=== PATIENT | female | born 1980 | race Caucasian/White ===

== ENCOUNTER 2018-08-22 14:41 | Emergency (ER) | payer BC, SELFPAY ==
[2018-08-22 15:49] LABS: #Eosinphils 0.1 thou/uL (0.0-0.7); #Lymphocytes 3.1 thou/uL (1.20-3.40); #Monocytes 0.8 thou/uL (0.11-0.59); #Neutrophils 4.2 thou/uL (1.40-6.50); %Basophils 0.5 % (0.0-1.0); %Eosinophils 1.2 % (0.0-10.0); %Lymphocytes 37.4 % (21.0-51.0); %Monocytes 9.7 % (0.0-10.0); %Neutrophils 51.2 % (42.0-75.0); Hemoglobin 15.4 g/dL (12.0-16.0); Mean Corpuscular HGB CONC 34.6 g/dL (32.0-36.0); Mean Corpuscular Hemoglobin 31.7 pg (27.0-31.0); Mean Corpuscular Volume 91.8 fL (78.0-98.0); Mean Platelet Volume 6.9 fL (7.4-10.4); Platelet Count 252 thou/uL (130-400); RBC Distribution Width 12.3 % (11.5-14.5); Red Blood Cell (RBC) Count 4.87 mill/uL (4.20-5.40); White Blood Cell (WBC) Count 8.3 thou/uL (4.8-10.8)
[2018-08-22 16:18] LABS: Bilirubin Negative (Negative); Blood, Urine Negative (Negative); Clarity CLEAR (Clear); Glucose, Urine (Dipstick) Negative (Negative); Leukocyte Trace (Negative); Nitrite Negative (Negative); Protein, Urine (Dipstick) Negative (Neg-Trace); Specific Gravity, Urine 1.009 (1.002-1.036); Urobilinogen 0.2 mg/dL (0.2-1.0); pH, Urine 7.5 (5.0-9.0)
[2018-08-22 16:20] LABS: ALT (SGPT) 13 U/L (8-55); AST (SGOT) 31 U/L (5-34); Albumin 4.3 g/dL (3.5-5.0); Alkaline Phosphatase 65 U/L (40-150); Anion Gap 15 mmol/L (10-20); BUN (Urea Nitrogen) 11 mg/dL (7.0-18.7); Bilirubin, Total 0.3 mg/dL (0.2-1.2); Calc. Creatinine Clearance 0 mL/min (70-130); Calcium 9.6 mg/dL (7.8-10.44); Carbon Dioxide 23 mmol/L (22-29); Chloride 106 mmol/L (98-107); Estimated GFR-MDRD 86; Globulin 3.9 g/dL (2.4-3.5); Glucose 104 mg/dL (70-105); Lipase 14 U/L (8-78); Potassium 4.7 mmol/L (3.5-5.1); Protein, Total 8.2 g/dL (6.0-8.3); Sodium 139 mmol/L (136-145)
[2018-08-22 16:21] LABS: Pregnancy Test - Urine (BHCG) Negative (Negative); Pregu Control Background? CLEAR/WHITE (CLR/WHITE); Pregu Control Bar Appear? YES (CONTROL BAR); Specific Gravity 1.009 (1.002-1.036)
[2018-08-22 16:22] LABS: Bacteria/HPF None Seen HPF (None Seen); Hyaline Casts/LPF 0-3 HYALINE CAST LPF (0-3 Hyaline); RBC/HPF 0-3 HPF (0-3); Squamous Epithelial 0-3 HPF (0-3); WBC/HPF 0-3 HPF (0-3)
[2018-08-22] MEDS ORDERED: Ketorolac Tromethamine 30 MG/ML VIAL ONE (18:12)
--- NOTE | 2018-08-22 19:02 | CT ---
NONCONTRAST CT ABDOMEN AND PELVIS: History: Pain. Left sided flank pain. Comparison: None. FINDINGS: ABDOMEN CT: Lung bases are clear. Gallbladder is surgically absent. Limited evaluation of the solid organs due to lack of IV contrast administration. Grossly, no solid o rgan abnormality. No gastrohepatic, retrocrural or periportal lymphadenopathy. There are bilateral nonobstructing 1-2 mm intrarenal calculi. Bilaterally, no hydronephrosis or perin ephric fat stranding. Bilateral ureters have normal caliber. No hydroureter, periureteral fat strandi ng or ureterolithiasis. No mesenteric mass, lymphadenopathy, free air or free fluid. Limited evaluation of the alimentary canal by lack of oral contrast. No evidence for bowel obstructio n. Ileocecal junction is normal. Normal caliber appendix. Scattered fecal material in a nondistended, nondilated colon. Occasional diverticulum. No diverticulitis. PELVIC CT: Uterus and adnexal structures are unremarkable. Unremarkable urinary bladder. No pelvic mass, lymphad enopathy, or significant free fluid. No lytic or blastic lesions in the osseous structures. IMPRESSION: 1. Bilateral nonobstructed intrarenal calculi. 2. No evidence of obstructive uropathy. 3. Normal caliber appendix. POS: [facility]
== END 2018-08-22 19:06 | disposition home or self-care (01) ==
LOC: ERS 14:41
DX: N20.0 Calculus of kidney (principal); F17.200 Nicotine dependence, unspecified, uncomplicated
CPT/HCPCS: 74176; 80053; 81003; 81015; 81025; 83690; 85025; 96361; 96374; J1885

== ENCOUNTER 2020-12-13 13:31 | Outpatient (CLI) | payer BC | END 2020-12-13 13:32 | disposition home or self-care (01) | LOC: BICMRI 13:31 | PROVIDERS: ATTEND Nurse Practitioner Family | DX: M54.2 Cervicalgia (principal); M54.6 Pain in thoracic spine; M47.26 Other spondylosis with radiculopathy, lumbar region; R29.898 Other symptoms and signs involving the musculoskeletal system; M62.838 Other muscle spasm; M53.2X6 Spinal instabilities, lumbar region; M47.814 Spondylosis without myelopathy or radiculopathy, thoracic region; M47.812 Spondylosis without myelopathy or radiculopathy, cervical region | CPT/HCPCS: 72141; 72146; 72148 ==